=== PATIENT | female | born 1945 | race Two or more races ===

== ENCOUNTER 2019-04-19 22:19 | Emergency (ER) | payer OTHER ==
[~2019-04-19] VITALS: Ht 157.5 cm; Wt 75.7 kg
[~2019-04-19 22:19] MED LIST: PERCOCET 5/3251 TAB PO
[2019-04-19] MEDS ORDERED: NEURONTIN300 MG (22:30)
[2019-04-19] MEDS ORDERED: GLUCOPHAGE XR500 MG (22:31)
== END 2019-04-19 23:17 | disposition home or self-care (01) ==
LOC: ER 22:19
DX: S30.0XXA Contusion of lower back and pelvis, initial encounter (principal); W18.09XA Striking against other object with subsequent fall, initial encounter; Y93.89 Activity, other specified; Y92.89 Other specified places as the place of occurrence of the external cause; Y99.8 Other external cause status

== ENCOUNTER 2019-08-11 11:39 | Emergency (ER) | payer OTHER ==
[~2019-08-11] VITALS: Ht 157.5 cm; Wt 93.0 kg
[~2019-08-11 11:39] MED LIST changes: +GLUCOPHAGE XR500 MG; +NEURONTIN300 MG
== END 2019-08-11 15:44 | disposition home or self-care (01) ==
LOC: ER 11:39
DX: M25.552 Pain in left hip (principal)

== ENCOUNTER 2019-08-28 12:37 | Emergency (ER) | payer OTHER ==
[~2019-08-28] VITALS: Ht 162.6 cm; Wt 89.8 kg
[2019-08-28] MEDS ORDERED: IBERSARTAN (13:07)
== END 2019-08-28 13:56 | disposition home or self-care (01) ==
LOC: ER 12:37
DX: M54.5 Low back pain (principal)

== ENCOUNTER 2022-08-03 15:18 | Inpatient (IN) | payer OTHER ==
[~2022-08-03] VITALS: Ht 157.5 cm; Wt 81.6 kg
[~2022-08-03 15:18] MED LIST changes: +IBERSARTAN
[2022-08-03] MEDS ORDERED: ZESTRIL2.5 MG (15:51)
--- NOTE | 2022-08-03 15:52 | NUR ---
SE RECIBE PTE ALERTA Y ORIENTADA X 3 ESFERAS EN AMBULANCIA EN COMPANIA DE FAMILIAR QUIEN REFIERE PTE CON PRESION BAJA,REFIERE SE WILLAM EN LA MANANA,PARAMEDICOS CANALIZAN PTE EN BRAZO LT CON .9NSS Y ADMINISTRAN 250 ML.SE DESHAUN S/V Y SE UBICA EN FRACISCO CON BARANDAS ELEVADAS.
--- NOTE | 2022-08-03 16:48 | NUR ---
RN TATIANA ORIENTA PTE SOBRE EL TRATAMIENTO ORDENADO POR EL DR PICKENS PTE ALERTA RN TATIANA REALIZA MUESTRAS DE LABORATORIO Y SE NOTIFICA ESTUDIO DE CT PTE SE MANTIENE EN OBSERVACION Y BAJO TRATAMIENTO.
[2022-08-05] MEDS ORDERED: LIDOCAINE1 EACH (11:33)
[2022-08-05] MEDS ORDERED: PAROXETINE HCL20 MG (11:33)
[2022-08-05] MEDS ORDERED: MONTELUKAST SOD10 MG (11:33)
[2022-08-05] MEDS ORDERED: PROPRANOLOL HCL20 MG (11:34)
[2022-08-05] MEDS ORDERED: AVAPRO75 MG (11:34)
[2022-08-05] MEDS ORDERED: BACLOFEN10 MG (11:34)
[2022-08-05] MEDS ORDERED: ESTAZOLAM2 MG (11:34)
== END 2022-08-05 17:44 | disposition home or self-care (01) | DRG 93 ==
LOC: ER 15:18 → SEC-K 22:36 → MEDJ 08-04 13:08
PROVIDERS: ADMIT Internal Medicine; ATTEND Internal Medicine
PROC: B020ZZZ Computerized Tomography (CT Scan) of Brain (ICD-10-PCS; principal; 2022-08-03)
PROC: B345ZZZ Ultrasonography of Bilateral Common Carotid Arteries (ICD-10-PCS; 2022-08-03)
PROC: B348ZZZ Ultrasonography of Bilateral Internal Carotid Arteries (ICD-10-PCS; 2022-08-03)
PROC: B030ZZZ Magnetic Resonance Imaging (MRI) of Brain (ICD-10-PCS; 2022-08-03)
PROC: B246ZZZ Ultrasonography of Right and Left Heart (ICD-10-PCS; 2022-08-03)
PROC: 4A12X4Z Monitoring of Cardiac Electrical Activity, External Approach (ICD-10-PCS; 2022-08-03)
DX: R47.81 Slurred speech (principal); M62.81 Muscle weakness (generalized); R42 Dizziness and giddiness; T42.6X5A Adverse effect of other antiepileptic and sedative-hypnotic drugs, initial encounter; S80.01XA Contusion of right knee, initial encounter; H81.20 Vestibular neuronitis, unspecified ear; I10 Essential (primary) hypertension; W18.30XA Fall on same level, unspecified, initial encounter; Y92.019 Unspecified place in single-family (private) house as the place of occurrence of the external cause
CPT/HCPCS: 70544